=== PATIENT | female | born 1990 | race Caucasian/White ===

== ENCOUNTER 2021-01-13 09:12 | Outpatient (CLI) | payer OTHER | END 2021-01-13 10:16 | disposition home or self-care (01) | LOC: NST 09:12 | PROVIDERS: ATTEND Obstetrics & Gynecology Maternal & Fetal Medicine | DX: O30.002 Twin pregnancy, unspecified number of placenta and unspecified number of amniotic sacs, second trimester (principal) ==

== ENCOUNTER 2021-02-01 07:54 | Outpatient (CLI) | payer OTHER | END 2021-02-01 08:35 | disposition home or self-care (01) | LOC: NST 07:54 | PROVIDERS: ATTEND Obstetrics & Gynecology | DX: Z34.83 Encounter for supervision of other normal pregnancy, third trimester (principal) ==

== ENCOUNTER 2021-02-08 07:54 | Outpatient (CLI) | payer OTHER | END 2021-02-08 08:47 | disposition home or self-care (01) | LOC: NST 07:54 | PROVIDERS: ATTEND Obstetrics & Gynecology | DX: Z34.83 Encounter for supervision of other normal pregnancy, third trimester (principal) ==

== ENCOUNTER → 2021-02-16 | Outpatient (CLI) | payer OTHER | END | disposition home or self-care (01) | LOC: NST 14:51 | PROVIDERS: ATTEND Obstetrics & Gynecology Maternal & Fetal Medicine | DX: Z34.83 Encounter for supervision of other normal pregnancy, third trimester (principal) ==

== ENCOUNTER 2021-02-25 19:55 | Inpatient (IN) | payer OTHER ==
[~2021-02-25] VITALS: Ht 157.5 cm; Wt 1.8 kg
[2021-02-25] MEDS ORDERED: NIFEDIPINE10 MG PO (19:58)
[2021-02-25] MEDS ORDERED: PRENATAL TABLE1 EAC1 PO (19:59)
[2021-02-28] MEDS ORDERED: FOLIC ACID1 MG (10:28)
[2021-02-28] MEDS ORDERED: PRENATAL MULTI1 EAC3 (10:29)
[2021-02-28] MEDS ORDERED: PROGESTERO50 MG/1 M1 (10:29)
[2021-03-05] MEDS ORDERED: KETO10TA2 PO (10:34)
[2021-03-05] MEDS ORDERED: OXYC1TAB9 PO (10:35)
== END 2021-03-05 13:29 | disposition home or self-care (01) | DRG 786 ==
LOC: LDR 19:55 → SURG-SUITE 03-02 15:54
PROVIDERS: ADMIT Obstetrics & Gynecology; ATTEND Obstetrics & Gynecology
PROC: 4A1HXFZ Monitoring of Products of Conception, Cardiac Rhythm, External Approach (ICD-10-PCS; 2021-02-25)
PROC: 10D00Z1 Extraction of Products of Conception, Low, Open Approach (ICD-10-PCS; principal; 2021-03-02 13:15)
DX: O64.8XX2 Obstructed labor due to other malposition and malpresentation, fetus 2 (principal); O60.14X2 Preterm labor third trimester with preterm delivery third trimester, fetus 2; O60.14X1 Preterm labor third trimester with preterm delivery third trimester, fetus 1; O42.113 Preterm premature rupture of membranes, onset of labor more than 24 hours following rupture, third trimester; O30.043 Twin pregnancy, dichorionic/diamniotic, third trimester; Z3A.33 33 weeks gestation of pregnancy; Z37.2 Twins, both liveborn